=== PATIENT | male | born 2000 | race Caucasian/White ===

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

== ENCOUNTER → 2018-01-17 | Outpatient (CLI) | payer BC, OTHER ==
--- NOTE | 2018-01-17 09:03 | DIAGNOSTIC IMAGING REPORT ---
R ANKLE MIN 3 VIEWS CLINICAL HISTORY: RIGHT ANKLE PAIN COMPARISON: 02/22/2017 DISCUSSION: No fractures or dislocations are visualized. There are no erosive or destructive changes. There is been interval healing of the previously identified distal fibular fracture. IMPRESSION: 1. Interval healing of the previously identified distal fibular fracture 2. No acute fractures or dislocations identified Electronically signed by: Evelio Justin M.D. 01/17/2018 9:02 AM Dictated Date/Time: 01/17/2018 9:01 AM
== END | disposition home or self-care (01) ==
LOC: C.RDSM 08:40
PROVIDERS: ATTEND Physician Assistant
DX: Z87.81 Personal history of (healed) traumatic fracture (principal)